=== PATIENT | female | born 1985 | race Caucasian/White ===

== ENCOUNTER → 2024-10-16 16:46 | Outpatient (REF) | payer BC, SELFPAY | LOC: RAD 16:46 | PROVIDERS: ATTENDING PHYSICIAN Obstetrics & Gynecology | DX: O26.851 Spotting complicating pregnancy, first trimester (principal) | CPT/HCPCS: 76801 ==

== ENCOUNTER → 2024-10-19 17:26 | Outpatient (REF) | payer BC, SELFPAY | LOC: RAD 17:26 | PROVIDERS: ATTENDING PHYSICIAN Student in an Organized Health Care Education/Training Program | DX: O26.851 Spotting complicating pregnancy, first trimester (principal) | CPT/HCPCS: 76801 ==

== ENCOUNTER → 2024-12-29 15:34 | Outpatient (REF) | payer BC, SELFPAY | LOC: PNTC 15:34 | PROVIDERS: ATTENDING PHYSICIAN Student in an Organized Health Care Education/Training Program | DX: O09.529 Supervision of elderly multigravida, unspecified trimester (principal); O09.819 Supervision of pregnancy resulting from assisted reproductive technology, unspecified trimester | CPT/HCPCS: 76811; 76817 ==

== ENCOUNTER → 2025-01-14 14:56 | Outpatient (REF) | payer BC, SELFPAY | LOC: PNTC 14:56 | PROVIDERS: ATTENDING PHYSICIAN Obstetrics & Gynecology | DX: Z36.89 Encounter for other specified antenatal screening (principal) | CPT/HCPCS: 76815 ==

== ENCOUNTER → 2025-02-08 07:51 | Outpatient (REF) | payer BC, SELFPAY | LOC: PNTC 07:51 | PROVIDERS: ATTENDING PHYSICIAN Obstetrics & Gynecology | DX: O09.512 Supervision of elderly primigravida, second trimester (principal); O09.812 Supervision of pregnancy resulting from assisted reproductive technology, second trimester; O34.12 Maternal care for benign tumor of corpus uteri, second trimester | CPT/HCPCS: 36415; 76816; 86850; 86900; 86901; 96372; J2790 ==

== ENCOUNTER → 2025-02-08 13:18 | Outpatient (REF) | payer BC, SELFPAY ==
--- NOTE | 2025-02-08 12:04 | PN.DIAED06 ---
Meal Plan - Gestational
- Breakfast
Gestational Diabetes Meal Plan Name: 1800 calories
Breakfast - Total Carbohydrate (grams): 30 (1 carb serving = 15 g)
Breakfast - Starch Carbohydrate: 1 (carbs = starch, milk, fruit, juice)
Breakfast - Fruit Carbohydrate: 0
Breakfast - Milk Carbohydrate: 1
Breakfast - Nonstarchy Vegetables: Yes
Breakfast - Meat/Protein: 1 (1 protein serving = 1 oz/7g)
Breakfast - Fat: 2 (1 fat serving = 5g)
- Morning Snack
Morning Snack - Total Carbohydrate (grams): 30
Morning Snack - Starch Carbohydrate: 1
Morning Snack - Fruit Carbohydrate: 0 (no fruit or juice before noon)
Morning Snack - Milk Carbohydrate: 1
Morning Snack - Nonstarchy Vegetables: Yes
Morning Snack - Meat/Protein: 0.5
Morning Snack - Fat: 0
- Lunch
Lunch - Total Carbohydrate (grams): 45
Lunch - Starch Carbohydrate: 2
Lunch - Fruit Carbohydrate: 1
Lunch - Milk Carbohydrate: 0
Lunch - Nonstarchy Vegetables: Yes
Lunch - Meat/Protein: 2
Lunch - Fat: 1
- Afternoon Snack
Afternoon Snack - Total Carbohydrate (grams): 30
Afternoon Snack - Starch Carbohydrate: 1
Afternoon Snack - Fruit Carbohydrate: 1
Afternoon Snack - Milk Carbohydrate: 0
Afternoon Snack - Nonstarchy Vegetables: Yes
Afternoon Snack - Meat/Protein: 1
Afternoon Snack - Fat: 0
- Dinner
Dinner - Total Carbohydrate (grams): 45
Dinner - Starch Carbohydrate: 2
Dinner - Fruit Carbohydrate: 0
Dinner - Milk Carbohydrate: 1
Dinner - Nonstarchy Vegetables: Yes
Dinner - Meat/Protein: 2
Dinner - Fat: 2
- Evening Snack
Evening Snack - Total Carbohydrate (grams): 30
Evening Snack - Starch Carbohydrate: 1
Evening Snack - Fruit Carbohydrate: 0
Evening Snack - Milk Carbohydrate: 1
Evening Snack - Nonstarchy Vegetables: Yes
Evening Snack - Meat/Protein: 1
Evening Snack - Fat: 1
--- NOTE | 2025-02-08 15:43 | PN.DE ---
Addendum entered by Leonela Thomason RN 02/10/25 08:38:
02/10/2025 GESTATIONAL DIABETES EDUCATION CONSULT UPDATE
Kary sent glucose numbers as follows: fasting 88, 2 hours post prandial breakfast: 90, lunch 82, dinner 118.
She stopped eating fruit in AM, eating after 12pm. Otherwise has stuck to her normal eating pattern. Encouraged her to outreach with any questions or concerns and reminded her to send her glucose numbers to the department every Saturday by
10am.
Original Note:
Diabetes Education
- -
02/08/2025 GESTATIONAL DIABETES EDUCATION CONSULT
Met with patient today for medical nutrition therapy. G1, P0, currently at 26 weeks of gestation, with an COMFORT of 05/14/2025
Explained glucose metabolism in body and what occurs during to cause increase blood sugar. Discussed importance of keeping BS well controlled to avoid complications to the baby during and after (macrosomia, hypoglycemia). Discussed
macronutrients, provided with 1800 kevin GDM meal plan. She will eliminate fruit before noon and add protein and fats to her carbohydrate portion. Discussed importance of physical activity in lowering glucose levels.
She feels she eats very healthy, but will be more careful on portion sizes of healthy fats. I provided a [employer] glucometer sample kit, she states this is covered by her insurance. Requested prescription to be sent to pharmacy in
[place], she is on vacation this week (lives in [place], [place]).
I Reviewed proper testing technique, testing sites and testing pattern. She is aware to test FBS and 2 hr pp each meal. Expected results for FBS <95 mg/dl and 2 hr pp <120 mg/dl. Noted for blood sugar of 60 mg/dl, she has not eating for several
hours since breakfast. . Log sheet provided for her to record results, she will send a 4-day meal log with all her FBG and 2hr Post prandial glucose numbers to this office for review. In addition, she will send all her glucose readings Robert
every Saturday.She was encouraged to reach out should she require insulin.
== END ==
LOC: DES 13:18
PROVIDERS: ATTENDING PHYSICIAN Obstetrics & Gynecology
DX: O24.419 Gestational diabetes mellitus in pregnancy, unspecified control (principal)
CPT/HCPCS: 99078

== ENCOUNTER 2025-03-13 17:12 | Observation (INO) | payer BC, SELFPAY ==
[2025-03-13 17:17] VITALS: BP 111/78; BMI 25.8
[2025-03-13 17:57] LABS: Hematocrit 33.7 % (37.0-47.0); Hemoglobin 11.9 g/dL (12.0-16.0); Mean Corp Hgb Conc. 35.3 g/dL (33.0-37.0); Mean Corpuscular Volume 96.6 fL (81.0-99.0); Platelet Count 108 10^3/uL (130-400); Red Cell Dist. Width 13.1 % (11.5-14.5)
[2025-03-13 18:14] LABS: ALT (SGPT) 18 U/L (0-35); AST (SGOT) 23 U/L (14-36); Albumin 3.3 g/dl (3.5-5.0); Alkaline Phosphatase 111 U/L (38-126); Blood Urea Nitrogen 14 mg/dl (7-17); Calcium 9.1 mg/dl (8.4-10.2); Carbon Dioxide 20 mmol/L (22-30); Chloride 112 mmol/L (98-107); Estimated Creatinine Clearance 116 ml/min; Glucose 110 mg/dl (70-99); Potassium 4.0 mmol/L (3.5-5.1); Sodium 135 mmol/L (135-145); Total Protein 5.6 g/dl (6.3-8.2); eGFR > 60.00
== END 2025-03-13 19:00 | disposition home or self-care (01) ==
LOC: LDRP 17:12
PROVIDERS: ADMITTING PHYSICIAN Student in an Organized Health Care Education/Training Program
DX: O99.891 Other specified diseases and conditions complicating pregnancy (principal); R22.43 Localized swelling, mass and lump, lower limb, bilateral; R51.9 Headache, unspecified; Z3A.37 37 weeks gestation of pregnancy
CPT/HCPCS: 59025; 80053; 82570; 84156; 85027; G0378

== ENCOUNTER 2025-03-22 16:38 | Observation (INO) | payer BC, SELFPAY ==
[2025-03-22 17:21] LABS: Hematocrit 33.6 % (37.0-47.0); Hemoglobin 11.7 g/dL (12.0-16.0); Mean Corp Hgb Conc. 34.8 g/dL (33.0-37.0); Mean Corpuscular Volume 96.0 fL (81.0-99.0); Platelet Count 100 10^3/uL (130-400); Red Cell Dist. Width 12.9 % (11.5-14.5)
[2025-03-22 17:30] LABS: ALT (SGPT) 18 U/L (0-35); AST (SGOT) 26 U/L (14-36); Albumin 3.2 g/dl (3.5-5.0); Alkaline Phosphatase 124 U/L (38-126); Blood Urea Nitrogen 16 mg/dl (7-17); Calcium 9.1 mg/dl (8.4-10.2); Carbon Dioxide 21 mmol/L (22-30); Chloride 109 mmol/L (98-107); Glucose 87 mg/dl (70-99); Potassium 4.1 mmol/L (3.5-5.1); Sodium 134 mmol/L (135-145); Total Protein 5.6 g/dl (6.3-8.2); eGFR > 60.00
[2025-03-22 17:59] VITALS: BP 115/74; BMI 26.3
== END 2025-03-22 18:42 | disposition home or self-care (01) ==
LOC: PNTC-IN 16:38
PROVIDERS: ADMITTING PHYSICIAN Student in an Organized Health Care Education/Training Program; ATTENDING PHYSICIAN Obstetrics & Gynecology
DX: O26.893 Other specified pregnancy related conditions, third trimester (principal); O09.513 Supervision of elderly primigravida, third trimester; Z3A.32 32 weeks gestation of pregnancy; O09.813 Supervision of pregnancy resulting from assisted reproductive technology, third trimester; R51.9 Headache, unspecified; O24.410 Gestational diabetes mellitus in pregnancy, diet controlled; O34.13 Maternal care for benign tumor of corpus uteri, third trimester; D25.9 Leiomyoma of uterus, unspecified; O99.113 Other diseases of the blood and blood-forming organs and certain disorders involving the immune mechanism complicating pregnancy, third trimester; D69.6 Thrombocytopenia, unspecified; Z79.82 Long term (current) use of aspirin; R22.43 Localized swelling, mass and lump, lower limb, bilateral
CPT/HCPCS: 76816; 80053; 82570; 84156; 85027; G0378

== ENCOUNTER 2025-04-02 12:30 | Observation (INO) | payer BC, SELFPAY ==
[2025-04-02 12:42] VITALS: BP 148/76; BMI 27.0
[2025-04-02 13:22] LABS: Hematocrit 33.0 % (37.0-47.0); Hemoglobin 11.6 g/dL (12.0-16.0); Mean Corp Hgb Conc. 35.2 g/dL (33.0-37.0); Mean Corpuscular Volume 94.6 fL (81.0-99.0); Nucleated Red Blood Cells % 0 %; Red Cell Dist. Width 13.0 % (11.5-14.5)
[2025-04-02 13:51] LABS: ALT (SGPT) 19 U/L (0-35); AST (SGOT) 28 U/L (14-36); Albumin 3.0 g/dl (3.5-5.0); Alkaline Phosphatase 126 U/L (38-126); Blood Urea Nitrogen 15 mg/dl (7-17); Calcium 8.8 mg/dl (8.4-10.2); Carbon Dioxide 19 mmol/L (22-30); Chloride 113 mmol/L (98-107); Estimated Creatinine Clearance 87 ml/min; Glucose 79 mg/dl (70-99); Potassium 4.2 mmol/L (3.5-5.1); Sodium 135 mmol/L (135-145); Total Protein 5.3 g/dl (6.3-8.2); eGFR > 60.00
[2025-04-02 14:03] LABS: Platelet Count 89 10^3/uL (130-400)
== END 2025-04-02 14:43 | disposition home or self-care (01) ==
LOC: LDRP 12:30
PROVIDERS: ADMITTING PHYSICIAN Obstetrics & Gynecology; FAMILY PHYSICIAN Family Medicine
DX: O26.893 Other specified pregnancy related conditions, third trimester (principal); R50.9 Fever, unspecified; H53.8 Other visual disturbances; R11.0 Nausea; O12.03 Gestational edema, third trimester; R03.0 Elevated blood-pressure reading, without diagnosis of hypertension; Z3A.34 34 weeks gestation of pregnancy; O09.813 Supervision of pregnancy resulting from assisted reproductive technology, third trimester; O24.410 Gestational diabetes mellitus in pregnancy, diet controlled; O09.513 Supervision of elderly primigravida, third trimester; O99.113 Other diseases of the blood and blood-forming organs and certain disorders involving the immune mechanism complicating pregnancy, third trimester; D69.6 Thrombocytopenia, unspecified; O34.13 Maternal care for benign tumor of corpus uteri, third trimester; D25.9 Leiomyoma of uterus, unspecified; Z79.82 Long term (current) use of aspirin
CPT/HCPCS: 80053; 82570; 84156; 85025; G0378

== ENCOUNTER 2025-04-06 11:15 | Inpatient (IN) | payer BC, SELFPAY ==
[2025-04-06 11:50] LABS: Hematocrit 31.8 % (37.0-47.0); Hemoglobin 11.1 g/dL (12.0-16.0); Mean Corp Hgb Conc. 34.9 g/dL (33.0-37.0); Mean Corpuscular Volume 95.8 fL (81.0-99.0); Platelet Count 81 10^3/uL (130-400); Red Cell Dist. Width 13.1 % (11.5-14.5)
[2025-04-06 11:54] LABS: Urine Character Clear (Clear)
[2025-04-06 12:03] LABS: Urine Squamous Cell 26-30 /LPF (Few)
[2025-04-06 12:05] VITALS: BP 138/91; BMI 26.6
[2025-04-06 12:06] LABS: ALT (SGPT) 28 U/L (0-35); AST (SGOT) 36 U/L (14-36); Albumin 2.9 g/dl (3.5-5.0); Alkaline Phosphatase 122 U/L (38-126); Blood Urea Nitrogen 19 mg/dl (7-17); Calcium 8.6 mg/dl (8.4-10.2); Carbon Dioxide 20 mmol/L (22-30); Chloride 111 mmol/L (98-107); Glucose 75 mg/dl (70-99); Potassium 4.4 mmol/L (3.5-5.1); Sodium 133 mmol/L (135-145); Total Protein 5.3 g/dl (6.3-8.2); eGFR > 60.00
[2025-04-06] MEDS: CELESTONE SOLUSPAN 2 MG IM (15:14)
[2025-04-06] MEDS: LR 1000 IV (15:28)
[2025-04-06] MEDS: MAGNESIUM SULFATE 100 IV (15:29)
[2025-04-06 15:33] LABS: Fibrinogen 374 MG/DL (199-459); INR 1.00; PT 13.5 Sec (11.4-14.6)
[2025-04-06 15:47] LABS: ALT (SGPT) 33 U/L (0-35); AST (SGOT) 42 U/L (14-36); Albumin 3.3 g/dl (3.5-5.0); Alkaline Phosphatase 158 U/L (38-126); Blood Urea Nitrogen 19 mg/dl (7-17); Calcium 9.1 mg/dl (8.4-10.2); Carbon Dioxide 19 mmol/L (22-30); Chloride 111 mmol/L (98-107); Estimated Creatinine Clearance 77 ml/min; Glucose 63 mg/dl (70-99); Potassium 4.4 mmol/L (3.5-5.1); Sodium 135 mmol/L (135-145); Total Protein 5.9 g/dl (6.3-8.2); eGFR > 60.00
[2025-04-06 15:49] LABS: Hematocrit 35.6 % (37.0-47.0); Hemoglobin 12.4 g/dL (12.0-16.0); Mean Corp Hgb Conc. 34.8 g/dL (33.0-37.0); Mean Corpuscular Volume 96.7 fL (81.0-99.0); Nucleated Red Blood Cells % 0.2 %; Platelet Count 88 10^3/uL (130-400); Red Cell Dist. Width 12.9 % (11.5-14.5)
[2025-04-06] MEDS: MAGNESIUM SULFATE 40 GRAM 1000 IV (15:57)
[2025-04-06 20:01] LABS: Glucose - Point of Care 89 mg/dl (70-99)
[2025-04-06] MEDS: CYTOTEC 25 MICROGRAM VAG (21:16)
--- NOTE | 2025-04-06 21:16 | CON.NEO ---
Consultation
-
Date/Time Consultation Requested: 04/06/2025
Date/Time Consultation Performed: 04/06/2025 @ 2029
Requesting Provider: Sekou
Performing Provider: Charity
Reason for Consultation: Expected delivery at 34 weeks
Consultation - Neonatology
Maternal Labs
Blood Type: A Negative
Antibody Screen: Negative
RPR: Nonreactive
Rubella: Immune
Hep B S Ag: Negative
Hep C: Negative
HIV: Nonreactive
Group B Strep: Unknown
Chlamydia/GC: Negative
Consult
Mother is a 39 yo G 1 P 0 who presented with preeclampsia. notable for IVF conception (donor egg from partner and donor sperm); gestational thrombocytopenia.
Both moms and grandmothers were present for the discussion.
anticipate a female infant to be named Sierra.
Points discussed at consult:
- Management at delivery including the possibility of CPAP/intubation/surfactant discussed
- Respiratory: RDS possibility with possibility of worsening for 24-48 hrs, management including CPAP/surfactant/ventilator support may be required
- Nutrition: Hypoglycemia, need for IV fluids, gradual feed advance, Gavage feeding, importance of colostrum feeding, initiation of expression of colostrum within 3-4 hours, availability of donor milk, safety fo donor milk etc. were discussed.
- Procedures: Intubation, CPAP, IV placement, blood tests, umbilical arterial or venous lines, gavage feedings were discussed
- CVS: possibility of PDA not discussed in detail at this time
- DIRECTOR OF ANALYTICS: prison possible neurodevelopmental issues - need for monitoring developmental stages
- Jaundice possibility and need for phototherapy discussed
- Family Centered Care: Discussed FCC with emphasis on parental participation during sign off and during management rounds and is encouraged. Availability of manuel eyes camera also discussed
Family was given the opportunity to ask questions throughout and open invitation to call if any questions come as they absorb all the information given so far.
Face to Face Time
Total Abji-yf-Xsyq Time (in Minutes): 30
[2025-04-06 22:19] LABS: Hematocrit 36.5 % (37.0-47.0); Hemoglobin 12.7 g/dL (12.0-16.0); Mean Corp Hgb Conc. 34.8 g/dL (33.0-37.0); Mean Corpuscular Volume 95.8 fL (81.0-99.0); Nucleated Red Blood Cells % 0.1 %; Platelet Count 104 10^3/uL (130-400); Red Cell Dist. Width 13.1 % (11.5-14.5)
[2025-04-07 00:21] LABS: Glucose - Point of Care 113 mg/dl (70-99)
[2025-04-07] MEDS: CYTOTEC 50 MICROGRAM PO ×3 (01:28→12:52)
[2025-04-07] MEDS: LR 1000 IV ×2 (03:52→14:54)
[2025-04-07] MEDS: TUMS CHEWABLE TABLET 400 MG PO (03:53)
[2025-04-07 04:26] LABS: Glucose - Point of Care 102 mg/dl (70-99)
[2025-04-07 04:45] LABS: Platelet Count 102 10^3/uL (130-400)
[2025-04-07 05:21] LABS: ALT (SGPT) 33 U/L (0-35); AST (SGOT) 39 U/L (14-36); Albumin 3.2 g/dl (3.5-5.0); Alkaline Phosphatase 185 U/L (38-126); Blood Urea Nitrogen 19 mg/dl (7-17); Calcium 8.5 mg/dl (8.4-10.2); Carbon Dioxide 14 mmol/L (22-30); Chloride 108 mmol/L (98-107); Estimated Creatinine Clearance 77 ml/min; Glucose 101 mg/dl (70-99); Magnesium 7.0 mg/dl (1.6-2.3); Potassium 4.5 mmol/L (3.5-5.1); Sodium 131 mmol/L (135-145); Total Protein 5.9 g/dl (6.3-8.2); eGFR > 60.00
[2025-04-07] MEDS: CYTOTEC PO (06:55)
[2025-04-07 08:18] LABS: Glucose - Point of Care 113 mg/dl (70-99)
[2025-04-07] MEDS: PEPCID 40 MG PO (08:31)
[2025-04-07] MEDS: CLARITIN 10 MG PO (08:31)
[2025-04-07] MEDS: PRENATAL PLUS 1 TABLET PO (08:34)
[2025-04-07 12:04] LABS: Platelet Count 110 10^3/uL (130-400)
[2025-04-07 12:29] LABS: Blood Urea Nitrogen 21 mg/dl (7-17); Calcium 8.3 mg/dl (8.4-10.2); Carbon Dioxide 14 mmol/L (22-30); Chloride 108 mmol/L (98-107); Estimated Creatinine Clearance 69 ml/min; Glucose 103 mg/dl (70-99); Magnesium 7.4 mg/dl (1.6-2.3); Potassium 4.6 mmol/L (3.5-5.1); Sodium 129 mmol/L (135-145); eGFR > 60.00
[2025-04-07] MEDS: ZOFRAN 4 MG IV ×2 (12:39→18:25)
[2025-04-07] MEDS: MAGNESIUM SULFATE 40 GRAM 1000 IV (12:41)
[2025-04-07 13:09] LABS: Glucose - Point of Care 97 mg/dl (70-99)
[2025-04-07] MEDS: CELESTONE SOLUSPAN 2 MG IM (15:00)
[2025-04-07] MEDS: TYLENOL 1000 MG PO (16:34)
[2025-04-07 16:35] LABS: 24 Hour Urine Total Volume 1200 ml
[2025-04-07] MEDS: PITOCIN 30 UNITS/NSS 500 ML IV (16:35)
[2025-04-07 17:04] LABS: Glucose - Point of Care 113 mg/dl (70-99)
[2025-04-07 21:10] LABS: Glucose - Point of Care 155 mg/dl (70-99)
[2025-04-07 22:13] LABS: Glucose - Point of Care 128 mg/dl (70-99)
[2025-04-07 23:14] LABS: Glucose - Point of Care 146 mg/dl (70-99)
[2025-04-07] MEDS: NOVOLIN R INSULIN INFUSION 100 IV (23:25)
[2025-04-08 00:37] LABS: Glucose - Point of Care 144 mg/dl (70-99)
[2025-04-08] MEDS: PENICILLIN 110 UNITS IV (00:43)
[2025-04-08 01:50] LABS: Glucose - Point of Care 135 mg/dl (70-99)
[2025-04-08 02:45] LABS: Glucose - Point of Care 118 mg/dl (70-99)
[2025-04-08] MEDS: SUBLIMAZE 100 MCG EPIDURAL (03:17)
[2025-04-08] MEDS: FENTANYL/BUPIVACAINE 100 EPIDURAL (03:18)
[2025-04-08] MEDS: LR 1000 IV ×2 (03:59→15:22)
[2025-04-08] MEDS: PENICILLIN 55 UNITS IV (04:50)
[2025-04-08 04:58] LABS: Glucose - Point of Care 128 mg/dl (70-99)
[2025-04-08 05:17] LABS: Hematocrit 36.5 % (37.0-47.0); Hemoglobin 12.7 g/dL (12.0-16.0); Mean Corp Hgb Conc. 34.8 g/dL (33.0-37.0); Mean Corpuscular Volume 98.4 fL (81.0-99.0); Platelet Count 107 10^3/uL (130-400); Red Cell Dist. Width 13.0 % (11.5-14.5)
[2025-04-08 05:27] LABS: ALT (SGPT) 31 U/L (0-35); AST (SGOT) 34 U/L (14-36); Albumin 3.1 g/dl (3.5-5.0); Alkaline Phosphatase 165 U/L (38-126); Blood Urea Nitrogen 25 mg/dl (7-17); Calcium 7.7 mg/dl (8.4-10.2); Carbon Dioxide 17 mmol/L (22-30); Chloride 108 mmol/L (98-107); Estimated Creatinine Clearance 63 ml/min; Glucose 132 mg/dl (70-99); Potassium 4.6 mmol/L (3.5-5.1); Sodium 130 mmol/L (135-145); Total Protein 5.5 g/dl (6.3-8.2); eGFR > 60.00
[2025-04-08 06:02] LABS: Glucose - Point of Care 120 mg/dl (70-99)
[2025-04-08] MEDS: ZOFRAN 4 MG IV (06:07)
[2025-04-08 06:41] LABS: Magnesium 8.0 mg/dl (1.6-2.3)
[2025-04-08 07:54] LABS: Glucose - Point of Care 140 mg/dl (70-99)
[2025-04-08] MEDS: PITOCIN 30 UNITS/NSS 500 ML IV (08:33)
[2025-04-08] MEDS: TRANEXAMIC ACID 100 IV (08:34)
[2025-04-08] MEDS: CYTOTEC 800 MCG RECTAL (08:51)
[2025-04-08 09:47] LABS: Hematocrit 29.0 % (37.0-47.0); Hemoglobin 9.5 g/dL (12.0-16.0)
[2025-04-08] MEDS: PEPCID PO (11:58)
[2025-04-08] MEDS: PRENATAL PLUS PO (11:58)
[2025-04-08] MEDS: CLARITIN PO (11:58)
[2025-04-08] MEDS: PENICILLIN IV (12:01)
[2025-04-08] MEDS: MAGNESIUM SULFATE 40 GRAM 1000 IV (15:23)
[2025-04-08] MEDS: MOTRIN 600 MG PO (16:32)
[2025-04-08] MEDS: TYLENOL 650 MG PO ×2 (16:33→20:36)
[2025-04-08] MEDS: LR IV (18:11)
[2025-04-08] MEDS: COLACE 100 MG PO (20:15)
[2025-04-09] MEDS: LR 1000 IV (03:00)
[2025-04-09] MEDS: TYLENOL 650 MG PO ×2 (03:25→18:39)
[2025-04-09] MEDS: MOTRIN 600 MG PO ×2 (03:25→18:37)
[2025-04-09 06:51] LABS: Hematocrit 25.4 % (37.0-47.0); Hemoglobin 9.2 g/dL (12.0-16.0); Mean Corp Hgb Conc. 36.2 g/dL (33.0-37.0); Mean Corpuscular Volume 93.0 fL (81.0-99.0); Nucleated Red Blood Cells % 0.1 %; Platelet Count 96 10^3/uL (130-400); Red Cell Dist. Width 15.3 % (11.5-14.5)
[2025-04-09] MEDS: CLARITIN 10 MG PO (12:21)
[2025-04-09] MEDS: PRENATAL PLUS 1 TABLET PO (12:21)
[2025-04-09] MEDS: COLACE 100 MG PO ×2 (12:21→19:52)
[2025-04-09] MEDS: PEPCID 40 MG PO (12:21)
[2025-04-09] MEDS: RHOGAM 300 MCG IM (13:27)
[2025-04-09 14:49] LABS: Syphilis/T. pallidum Ab Reflex Negative (Negative)
[2025-04-09] MEDS: FEOSOL 325 MG PO (16:09)
[2025-04-09] MEDS: LR IV (17:35)
[2025-04-10] MEDS: MOTRIN 600 MG PO ×2 (00:51→06:51)
[2025-04-10] MEDS: TYLENOL 650 MG PO ×2 (00:51→06:51)
[2025-04-10] MEDS: PEPCID 40 MG PO (08:13)
[2025-04-10] MEDS: CLARITIN 10 MG PO (08:13)
[2025-04-10] MEDS: COLACE 100 MG PO (08:13)
[2025-04-10] MEDS: FEOSOL 325 MG PO (08:13)
[2025-04-10] MEDS: PRENATAL PLUS 1 TABLET PO (08:14)
[2025-04-10] MEDS: LR IV (09:37)
== END 2025-04-10 12:30 | disposition home or self-care (01) | DRG 768 ==
LOC: LDRP 11:15
PROVIDERS: Obstetrics & Gynecology; Student in an Organized Health Care Education/Training Program; ADMITTING PHYSICIAN Obstetrics & Gynecology; ATTENDING PHYSICIAN Obstetrics & Gynecology
PROC: 3E0P7VZ Introduction of Hormone into Female Reproductive, Via Natural or Artificial Opening (ICD-10-PCS; 2025-04-06)
PROC: 0U7C7DJ Dilation of Cervix with Intraluminal Device, Temporary, Via Natural or Artificial Opening (ICD-10-PCS; 2025-04-06)
PROC: 3E033VJ Introduction of Other Hormone into Peripheral Vein, Percutaneous Approach (ICD-10-PCS; 2025-04-07)
PROC: 30233N1 Transfusion of Nonautologous Red Blood Cells into Peripheral Vein, Percutaneous Approach (ICD-10-PCS; 2025-04-08)
PROC: 0HQ9XZZ Repair Perineum Skin, External Approach (ICD-10-PCS; 2025-04-08)
PROC: 0UQMXZZ Repair Vulva, External Approach (ICD-10-PCS; 2025-04-08)
PROC: 0W3R7ZZ Control Bleeding in Genitourinary Tract, Via Natural or Artificial Opening (ICD-10-PCS; 2025-04-08)
PROC: 10E0XZZ Delivery of Products of Conception, External Approach (ICD-10-PCS; 2025-04-08)
PROC: 10907ZC Drainage of Amniotic Fluid, Therapeutic from Products of Conception, Via Natural or Artificial Opening (ICD-10-PCS; 2025-04-08)
PROC: 3E0234Z Introduction of Serum, Toxoid and Vaccine into Muscle, Percutaneous Approach (ICD-10-PCS; 2025-04-09)
DX: O14.14 Severe pre-eclampsia complicating childbirth (principal); Z37.0 Single live birth; E87.3 Alkalosis; O99.12 Other diseases of the blood and blood-forming organs and certain disorders involving the immune mechanism complicating childbirth; O26.893 Other specified pregnancy related conditions, third trimester; D69.59 Other secondary thrombocytopenia; Z3A.34 34 weeks gestation of pregnancy; O72.1 Other immediate postpartum hemorrhage; O70.0 First degree perineal laceration during delivery; O26.53 Maternal hypotension syndrome, third trimester; O32.6XX0 Maternal care for compound presentation, not applicable or unspecified; O32.2XX0 Maternal care for transverse and oblique lie, not applicable or unspecified; O24.420 Gestational diabetes mellitus in childbirth, diet controlled; O34.13 Maternal care for benign tumor of corpus uteri, third trimester; D25.9 Leiomyoma of uterus, unspecified; O99.344 Other mental disorders complicating childbirth; F41.9 Anxiety disorder, unspecified; Z67.11 Type A blood, Rh negative; Z23 Encounter for immunization
CPT/HCPCS: 76815; 80048; 80053; 81003; 81015; 81050; 82570; 82962; 83735; 84156; 85014; 85018; 85025; 85027; 85049; 85384; 85461; 85610; 86780; 86850; 86870; 86900; 86901; 86902; 86920; 86922; 87070; 88307; J2790; P9016

== ENCOUNTER 2025-04-26 21:53 | Inpatient (IN) | payer BC, SELFPAY ==
[2025-04-26] VITALS (36 sets, daily range): BP systolic 58–145; BP diastolic 25–96; BMI 23.3
[2025-04-26 14:10] LABS: Hematocrit 35.3 % (37.0-47.0); Hemoglobin 11.5 g/dL (12.0-16.0); Mean Corp Hgb Conc. 32.6 g/dL (33.0-37.0); Mean Corpuscular Volume 97.0 fL (81.0-99.0); Nucleated Red Blood Cells % 0 %; Platelet Count 184 10^3/uL (130-400); Red Cell Dist. Width 13.5 % (11.5-14.5)
[2025-04-26] MEDS: NSS 1000 IV (14:13)
--- NOTE | 2025-04-26 14:21 | ED.GENMED ---
History of Present Illness
General
Chief Complaint: Vaginal Bleeding
Source: patient
Exam Limitations: none
Time Seen by Provider: 04/26/25 14:07
Nursing documentation reviewed up to this point in time: agreed with
History of Present Illness
History of Present Illness:
Patient is a 39F 18 days s/p vaginal delivery complicated by hemorrhage who presents to the emergency department via EMS for evaluation of vaginal bleeding. Patient reports some mild vaginal bleeding since discharge on 04/10 however
this morning she describes a sudden 'gush' of bleeding while she was sitting on the couch. She reports that the bleeding soaked through her depends and pants onto the couch. Ramirez then went to the bathroom and reports a significant amount of bright
red bleeding 'filling the toilet bowl'. She did contact her OBGYN office and leave a message however given degree of bleeding - she called 911 for transportation to the emergency department.
She reports persistent lightheadedness and fatigue since discharge from the hospital. She denies any fevers, chest pain, shortness of breath.
She was reporting lower abdominal cramping this morning, worse then her typical cramps since delivery. She does note passing a clot yesterday evening however states it was 'smaller than an egg' which was the threshold that she was given by her OBGYN.
Patient was induced secondary to pre-eclampsia. She had a hemorrhage and states the she received 2 units of blood .
Past History
Social History
Personal: Single
Living: with family
Review of Systems
Review of Systems
Allergies reviewed?: Yes
All Other Systems: ROS reviewed and negative except as documented in HPI and ROS
Phy Exam
Physical Exam
Physical Exam:
Vitals: Patient's vital signs are stable. Afebrile
General: Patient is anxious and tearful
Skin: Warm and dry, no rashes or lesions
Head: Normocephalic, atraumatic
Eyes: Sclera nonicteric.
Throat: Protecting airway
Neck: Normal ROM, no cervical spine tenderness, no meningismus
Cardiac: Regular rate and rhythm, no murmurs.
Pulm: Normal respiratory effort, no wheezes, rales, rhonchi heard on exam
Abdomen: Abdomen soft and nontender.
Pelvic: Deferred by patient
Extremities: No evidence of cyanosis or edema
Neuro: AAOx3. Grossly intact.
Psychiatric: Normal affect.
Course
Orders/Labs/Results
Orders:
Orders
04/26/25 Breakfast
NPO
Allow oral meds: Yes
Allow clear liquids: Sips of Clears
04/26/25 13:55
IV Insert/Care/Rem.- Treatment PRN
Pulse Ox/spot Check [RESP] Urgent
Quantity: 1
Special Instructions: ON ROOM AIR
04/26/25 14:00
Type+Screen Urgent
CMP [Comprehensive Metabolic Panel] Urgent
Complete Blood Count/With Diff Urgent
04/26/25 14:12
0.9% Sodium Chloride 1000 ml [Nss] 1,000 ml IV BOLUS
04/26/25 14:50
Consult AGRICULTURAL SERVICE WORKER [AGRICULTURAL SERVICE WORKER CONSULT] Urgent
Consulting Provider: Cindy Duarte
Was physician already notified: Yes
04/26/25 15:07
US Transvaginal [US Pelvis W Transvag Combined] Urgent
Comment:
Reason For Exam: vaginal bleeding
04/26/25 16:42
Urinalysis Reflex To Culture Urgent
Date Specimen was Collected: 04/26/25
Time Specimen was Collected: 16:41
Urine Microscopic Reflex Cult Urgent
Urine Culture Urgent
CM Source: U
Specimen Description:
Date Specimen was Collected: 04/26/25
Time Specimen was Collected: 16:41
Comment: ADD ON
04/26/25 17:23
Add On - Microbiology Urgent
Tests Added?: urine culture
04/26/25 17:41
Acetaminophen [Tylenol] 1,000 mg PO NOW STA
04/26/25 17:47
Dexamethasone Sod Phosphate [Decadron] 20 mg .ROUTE .STK-MED ONE
Lidocaine 2% Mpf [Xylocaine Mpf 2%] 100 mg .ROUTE .STK-MED ONE
Ondansetron Injectable [Zofran] 4 mg .ROUTE .STK-MED ONE
Propofol [Diprivan] 20 ml .ROUTE .STK-MED
04/26/25 17:48
Fentanyl Citrate/Pf [Sublimaze] 100 mcg .ROUTE .STK-MED ONE
Midazolam HCl [Versed] 2 mg .ROUTE .STK-MED ONE
04/26/25 17:56
Lidocaine Mpf 1% [Xylocaine-Mpf 1% Vial] 30 ml .ROUTE .STK-MED ONE
04/26/25 18:04
Doxycycline Hyclate [Vibramycin] 100 mg 0.9% Sodium Chloride 250 ml [Nss] 250 ml IV NOW
04/26/25 18:16
HYDROmorphone [Dilaudid] 0.25 mg IV PACU-Q5MPRN PRN
HYDROmorphone [Dilaudid] 0.5 mg IV PACU-Q5MPRN PRN
Ondansetron Injectable [Zofran] 4 mg IV PACU-ONCEPRN PRN
Prochlorperazine [Compazine] 5 mg IV PACU-ONCEPRN PRN
Notify MD As Directed
Notify physician if: for SDS patients with known or suspected sleep obstructive sleep apnea, monitor in the
PACU.
Notify MD for any apneic/desaturation episodes
O2 Therapy [RESP] Urgent
Titrate/Wean O2 to maintain O2 sat greater than (%): 92
Special Instructions: -Provide supplemental oxygen to achieve O2 sat of 92% or greater.
-After 15 min, may wean O2 and discontinue if patient is able to maintain O2 sat of 92%
or greater during recovery period.
If patient is a discharge home, without oxygen therapy, notify anestheiologist if
unable to maintain O2 SAT of 92% or greater on room air for MD clearance.
04/26/25 18:26
Fentanyl Citrate/Pf [Sublimaze] 25 mcg IV [id number] PRN
04/26/25 18:28
OR Pathology Routine
Pre-Operative Diagnosis: RETAINED PRODUCTS OF CONCEPTION
Operative Procedure: Dilatation & Evacuation
Surgeon: SHAYE
Circulating Nurse: CHRIS
Specimen Type: RETAINED PRODUCTS OF CONCEPTION
04/26/25 18:30
Acetaminophen 1000MG/100Ml [Ofirmev] 1,000 mg in 100 ml .ROUTE .STK-MED
Normosol (Mult Electrolytes) [Normosol-R/Plasmalyte-A] 1,000 ml IV PER PROTOCOL
04/26/25 18:32
Tranexamic Acid 1000 mg/100 ml [Tranexamic Acid] 1,000 mg in 100 ml .ROUTE .STK-MED
04/26/25 19:35
HYDROmorphone [Dilaudid] 0.5 mg .ROUTE .STK-MED ONE
04/26/25 20:00
Normosol (Mult Electrolytes) [Normosol-R/Plasmalyte-A] 1,000 ml IV SDS-ONCE
Ondansetron Injectable [Zofran] 4 mg IV SDS-ONCEPRN PRN
04/26/25 21:20
H&H Stat
Comment: post op bleeding
04/26/25 21:25
PHENYLephrine 50 MG/250 ML NSS [Jesus-Synephrine] 50 mg in 250 ml IV NOW
Initial dose in mcg/min, then titrate:: 50
Titrate to keep:: MAP > 65 mmHg
Titrate by mcg/min:: 20 mcg/min
Frequency of titrations (minutes):: 5
Maximum dose in ICU in mcg/min:: 200
Maximum dose in IMU in mcg/min:: 80
Begin to taper infusion when:: Other
Begin to taper infusion when (other):: may wean to off if patient maintains goal parameters
Taper by mcg/min:: 20 mcg/min
Frequency of taper (minutes) if patient maintains goal:: 5
Taper to off?: Yes
If infusion off & no longer maintaining goal:: Contact Provider
Additional Taper Instructions:: taper every 5-15 minutes
04/26/25 21:46
Admit/Transfer Patient As Directed
Co-Sign Provider:
Level of Care: Inpatient admission
Assign to:: ICU
Physician / Group: Chandrakant
Diagnosis: Post- Hemorrhage, Hypovolemic Shock
Reason for Hospitalization: Post- Hemorrhage, Hypovolemic Shock
Expected length of stay greater than two midnights?: Yes
ELOS- Estimated Length of Stay in days: 2
I certify the patient meets the requirements for IP care: Yes
PRN Pain Medication Management As Directed
May give lesser potent ordered pain med per pt: Yes
preference::
Protocol:: Medication orders for pain may be administered in a
manner that supports deferring to patient preference
when the pt is:
- Requesting an ordered lesser potent pain medication.
Least to most potent pain medications are defined
as: acetaminophen < NSAID < tramadol < opioids
(morphine, oxycodone, hydromorphone).
- Requesting a lesser dose of the same medication IF
ORDERED.
- Requesting a less intrusive route of administration
if both routes are prescribed by the provider (PO <
IV).
04/26/25 21:47
Code Status As Directed
Resuscitation Status: Full Code
04/26/25 22:00
miSOPROStol [Cytotec] 800 mcg PO ONCE ONE
04/26/25 22:17
Acetaminophen [Tylenol] 650 mg PO Q4HPRN PRN
HYDROmorphone [Dilaudid] 0.5 mg IV Q4HPRN PRN
Lactated Ringers [Lr] 1,000 ml IV 125 mls/hr
Ondansetron Injectable [Zofran] 4 mg IV Q6HPRN PRN
PHENYLephrine 50 MG/250 ML NSS [Jesus-Synephrine] 50 mg in 250 ml IV PER PROTOCOL
Currently infusing. Continue current dose and titrate:: Yes
Titrate to keep:: SBP > 90 mmHg
Titrate by mcg/min:: 20 mcg/min
Frequency of titrations (minutes):: 5
Maximum dose in ICU in mcg/min:: 200
Maximum dose in IMU in mcg/min:: 80
Begin to taper infusion when:: Remained at goal for 4hrs
Taper by mcg/min:: 20 mcg/min
Frequency of taper (minutes) if patient maintains goal:: 30
Taper to off?: Yes
If infusion off & no longer maintaining goal:: Contact Provider
04/26/25 22:17
Activity As Directed
Activity Level: Bedrest
EKG with chest pain [ECG as needed] As Directed
ECG as needed for:: Chest Pain
I/O [Intake/ Output] As Directed
Frequency: Per unit guidelines
Pneumatic Compression Sleeves As Directed
Type: Knee high
Vital Signs As Directed
Frequency: Per unit guidelines
Oxygen Therapy [O2 Therapy] [RESP] Routine
Titrate/Wean O2 to maintain O2 sat greater than (%): 94
DX Deep Vein Thrombosis Video Routine
04/27/25 06:00
Basic Metabolic Panel IN AM
Complete Blood Count/No Diff IN AM
04/27/25 08:00
Ferrous Sulfate [Feosol] 325 mg PO BID
Abnormal Lab Results
04/26/25 04/26/25 04/26/25
14:00 16:42 21:20
RBC 3.64 L 10^6/uL
(4.20-5.40)
Hgb 11.5 L g/dL 9.1 L D g/dL
(12.0-16.0) (12.0-16.0)
Hct 35.3 L % 27.5 L %
(37.0-47.0) (37.0-47.0)
MCH 31.6 H pg
(27.0-31.0)
MCHC 32.6 L g/dL
(33.0-37.0)
Absolute Monos (auto) 0.7 H 10^3/uL
(0.1-0.6)
BUN 18 H mg/dl
(7-17)
Ur Occult Blood Reflex 3+ A
(Negative)
Urine RBC 11-15 A /HPF
(0-2)
Urine Bacteria (Reflex) Few A
(Negative)
Antibody Screen Positive A
(Negative)
04/26/25 21:20
04/26/25 14:00
Vital Signs
Initial and Last Documented VS:
Initial Vital Signs
Pulse Resp Pulse Ox
84 15 100
04/26/25 13:55 04/26/25 13:55 04/26/25 13:55
Last Documented Vital Signs
Temp Pulse Resp BP Pulse Ox
97.8 F 90 11 118/74 98
04/26/25 23:40 04/26/25 22:05 04/26/25 22:05 04/26/25 22:05 04/26/25 23:52
MDM/Problems Addressed
Differential Diagnosis Includes:
Not limited to: hemorrhage, vaginal cervical laceration, anemia, normal course, etc.
MDM/Problems Addressed:
39-year-old female 13 days s/p vaginal delivery complicated by hemorrhage presenting to the emergency department with vaginal bleeding. She describes large gush of bleeding this morning w/ small clots. She has been lightheaded and
experiencing fatigue since delivery however no shortness of breath. No fevers. Patient is hemodynamically stable, normotensive. On exam, patient anxious and tearful however appears nontoxic. Abdomen soft and nontender. She deferred pelvic exam.
Given patient is 13 days following delivery with hemorrhage requiring 2 units PRBCs -will consult AGRICULTURAL SERVICE WORKER for further evaluation. Will send basic labs and type and screen.
Update: Labs reviewed. Very mild anemia with hemoglobin of 11.5 which has increased from 9.2 following delivery. Chemistry unremarkable. AGRICULTURAL SERVICE WORKER, Dr. Duarte, down to evaluate patient at bedside who reports she had no active bleeding on pelvic exam.
Will send patient for pelvic ultrasound and obtain urinalysis.
Update 4:50 PM: Ultrasound report reveals concerns for 2 cm heterogenous echogenicity in lower uterine segment consistent with possible retained products of conception. This was immediately discussed with AGRICULTURAL SERVICE WORKER on-call, Dr. Duarte. She was down to
discussed with patient at bedside who has remained hemodynamically stable without any active bleeding. However�with concerns for retained products that she will be brought to the OR for D&E.
Patient transported to the OR in stable condition.
Chronic conditions affecting care:
13 days s/p vaginal delivery complicated by hemorrhage
Acute Exacerbation and/or Progression of Chronic Illness:
bleeding secondary to retained products
*Radiology
Radiology exam reviewed: radiology read reviewed
*Pulse Oximetry
SaO2: 99
Oxygen Mode of Delivery: Room air
Patient hypoxic: no
*EKG
Interpreted by ED Provider?: NA
*Feller Operator Interpretation
Rate: Feller Operator- N/A
*Critical Care Note
Total Time (30-74mins, 75-104mins- exclusive of procedures): Not Applicable
Data Reviewed
Review of Other/Old Records Reveals: Discharge Summary (Delivery summary 04/08/2025 w/ hemorrhage)
Patient Management
Discussion with other providers: Insurance Consultant (Case discussed with AGRICULTURAL SERVICE WORKER)
ED Attending Note
-
Portions of this chart may have been created with voice recognition software.� Occasional wrong word or��sound alike� substitutions may have occurred due to the inherent limitations of voice recognition software.
Discharge Plan
Departure
Patient Disposition: OR
Date of Disposition: 04/26/25
Time of Disposition: 17:41
Admit to doctor: Dr. Duarte
Presentation/result/management discussed w/ accepting MD/DO: CITLALY
Discharge Problem:
bleeding, Retained products of conception
Interventions
Interventions:
*Risk Screen - Suicide Last Done: 04/26/25 14:00
*General Assessment Last Done: 04/26/25 14:00
*Neglect/Abuse Screening Last Done: 04/26/25 14:00
*ED- Fall Risk Assessment Last Done: 04/26/25 14:00
*ED COVID-19 Vaccine History Last Done: 04/26/25 14:00
*ED Influenza Vaccine History Last Done: 04/26/25 14:00
*Nursing Disposition Last Done: 04/26/25 17:59
ED-Female Genitourinary Assessment Last Done: 04/26/25 15:00
Discharge Date and Time
Discharge Date/Time: 04/26/25 18:00
[2025-04-26 14:22] LABS: ALT (SGPT) 23 U/L (0-35); AST (SGOT) 25 U/L (14-36); Albumin 4.2 g/dl (3.5-5.0); Alkaline Phosphatase 79 U/L (38-126); Blood Urea Nitrogen 18 mg/dl (7-17); Calcium 9.2 mg/dl (8.4-10.2); Carbon Dioxide 25 mmol/L (22-30); Chloride 106 mmol/L (98-107); Estimated Creatinine Clearance 99 ml/min; Glucose 89 mg/dl (70-99); Potassium 4.0 mmol/L (3.5-5.1); Sodium 135 mmol/L (135-145); Total Protein 7.0 g/dl (6.3-8.2); eGFR > 60.00
[2025-04-26 16:52] LABS: Urine Character Clear (Clear)
[2025-04-26 17:01] LABS: Urine Squamous Cell 0-2 /LPF (Few); Urine White Cell 0-2 /HPF (0-5)
[2025-04-26] MEDS: DILAUDID 0.5 MG IV ×2 (19:35→23:12)
[2025-04-26] MEDS: NEO-SYNEPHRINE 250 IV (21:29)
[2025-04-26 21:40] LABS: Hematocrit 27.5 % (37.0-47.0); Hemoglobin 9.1 g/dL (12.0-16.0)
[2025-04-26] MEDS: CYTOTEC 800 MCG PO (21:50)
[2025-04-26 22:23] LABS: Glucose - Point of Care 155 mg/dl (70-99)
--- NOTE | 2025-04-26 22:24 | HPS.HSE ---
Family Physician
-
Family Physician: Balta Stahl
Chief Complaint
-
Hypotension, Post- Bleeding
History of Present Illness
Patient is a 39y F with no significant PMH who presents to ED complaining of vaginal bleeding. She is 18 weeks post- and had prior / immediate post- bleeding after delivery that required 2 units of PRBCs. She presented to the ED
this evening with recurrent bleeding, lightheadedness and weakness. Patient was seen by OB and taken to the OR for evaluation. She underwent D&E with EBL of 500cc. In PACU. Patient was noted to be hypotensive, pale and lightheaded. She had an
additional 350cc of blood loss in the PACU. BP was as low as 60/40. Patient was started on phenylephrine in the PACU and will be admitted to ICU. She received a dose of misoprostol in the PACU.
In the PACU, patient denies chest pain, SOB. She reports some expected crampy pelvic pain s/p surgery.
Medical History
Past Medical History
Past Medical History: Reports Other
Additional Past Medical History:
IVF Treatments
Pre-Eclampsia, Induced Labor, Post- Hemorrhage
Past Surgical History: Reports Other
Additional Past Surgical History:
IVF [place]
Social History
Tobacco: Non-smoker
Alcohol: None
Drug: None
Family History
Family History: Not pertinent
Allergies / Home Medications
Allergies reflects when Allergies were last updated in [facility].
Home Medications with original date entered in [facility]
Allergy/Medication List:
Allergies
Allergy/AdvReac Type Severity Reaction Status Date / Time
No Known Allergies Allergy Verified 04/06/25 12:04
Home Medications
famotidine 40 mg tablet (Pepcid) 40 mg PO DAILY 04/02/25
fluticasone propionate 50 mcg/actuation nasal spray,suspension 1 spray intranasal DAILY 04/02/25
loratadine 10 mg tablet (Claritin) 10 mg PO DAILY 04/02/25
multivit with [id number] 18 mg iron-800 mcg-150 mg tablet (Vitamin D3 Complete) 1 tab PO DAILY 04/02/25
omega-3 fatty acids 1,000 mg PO DAILY 04/02/25
vitamin-ferrous fumarate 28 mg iron-folic acid 800 mcg tablet ( Tablet) 1 tab PO DAILY 04/02/25
acetaminophen 500 mg tablet (Tylenol Extra Strength) 1,000 mg (2 x 500 mg) PO Q6HPRN PRN headache 60 days #90 tabs 04/10/25
ferrous sulfate 325 mg (65 mg iron) tablet (FeroSul) 325 mg PO DAILY 30 days #30 tabs 04/10/25
ibuprofen 600 mg tablet 600 mg PO Q6HPRN PRN moderate pain/cramps 60 days #90 tabs 04/10/25
Review of Systems
-
History Source: Patient
A 12 point ROS was completed and negative except as noted: Yes
Constitutional: Reports Fatigue; Denies Fever or Chills
Respiratory: Denies Cough or Trouble Breathing
Cardiac: Denies Chest Pain or Palpitations
Abdomen/GI: Denies Abdominal Pain, Nausea, Vomiting or Diarrhea
: Reports Other (Pelvic pain / cramping.); Denies Dysuria, Frequency or Flank Pain
Musculoskeletal: Denies Joint Pain or Edema
Neurological: Reports Dizzy; Denies Headache
Psych: Reports Anxiety
Physical Exam
Vital Signs
Vital Signs
Temp Pulse Resp BP Pulse Ox
97.4 F 90 11 118/74 99
04/26/25 20:30 04/26/25 22:05 04/26/25 22:05 04/26/25 22:05 04/26/25 22:05
Physical Exam
General: Other (Pale-appearing, mildly anxious 39y F. Answers questions / follows commands appropriately.)
HEENT: Moist mucous membranes and PERRLA
Respiratory: Clear; No Wheezes, Rales or Rhonchi
Cardiac: S1/S2 and Tachycardia; No Murmur
GI: Soft, Non Tender, Non Distended and Normal Bowel Sounds
Musculoskeletal: No Clubbing, No Cyanosis and No Edema
Neuro: AO x 3
Laboratory Results
-
Laboratory Results
Total Bilirubin 0.5 mg/dl (0.2-1.3) 04/26/25 14:00
AST 25 U/L (14-36) 04/26/25 14:00
ALT 23 U/L (0-35) 04/26/25 14:00
Alkaline Phosphatase 79 U/L (38-126) 04/26/25 14:00
Impression/Plan
-
A/P: Patient is a 39y F with PMH significant for IVF s/p induced labor 18 days ago who presents to ED complaining of vaginal bleeding and was taken to the OR for D&E. Noted to be hypotensive post-op requiring pressor support.
Post- Hemorrhage
Hypovolemic / Hemorrhagic Shock secondary to the above
Acute Blood [place] Anemia secondary to the above
- Admit to ICU for further evaluation and treatment.
- Continue pressor support as needed to maintain perfusion.
- Follow H&H for changes (11.5 pre-op and 9.1 post-op). Transfuse if needed.
- IVF / volume support.
- Follow for evidence of ongoing vaginal bleeding.
- Post-op management per OB.
- Follow for clinical improvement / stabilization of BP.
DVT Prophylaxis: SCDs
Code Status: Full
[2025-04-26] MEDS: LR 1000 IV (22:39)
[2025-04-26 22:45] LABS: Hematocrit 32.8 % (37.0-47.0); Hemoglobin 10.1 g/dL (12.0-16.0); Mean Corp Hgb Conc. 30.8 g/dL (33.0-37.0); Mean Corpuscular Volume 101.9 fL (81.0-99.0); Platelet Count 233 10^3/uL (130-400); Red Cell Dist. Width 13.6 % (11.5-14.5)
[2025-04-26 23:00] LABS: INR 1.10; PT 14.5 Sec (11.4-14.6)
[2025-04-26 23:01] LABS: Fibrinogen 343 MG/DL (199-459)
[2025-04-26] MEDS: ZOFRAN 4 MG IV (23:12)
[2025-04-26 23:27] LABS: APTT 22.5 Sec (23.4-35.0)
[2025-04-27] VITALS (38 sets, daily range): BP systolic 92–133; BP diastolic 50–102; BMI 21.4
[2025-04-27 00:17] LABS: Blood Urea Nitrogen 16 mg/dl (7-17); Calcium 8.1 mg/dl (8.4-10.2); Carbon Dioxide 21 mmol/L (22-30); Chloride 109 mmol/L (98-107); Estimated Creatinine Clearance 116 ml/min; Glucose 152 mg/dl (70-99); Magnesium 1.9 mg/dl (1.6-2.3); Potassium 4.5 mmol/L (3.5-5.1); Sodium 133 mmol/L (135-145); eGFR > 60.00
--- NOTE | 2025-04-27 00:27 | PTCARENOTE ---
Rec'd pt from PACU s/p D & E, requiring boyd for MAP goal 65. Dr Duarte at bedside for eval. Labs sent and resulted. Hgb stable. Emotional support provided, mom at bedside and updated on plan of care. Will monitor.
[2025-04-27] MEDS: DILAUDID 0.5 MG IV (03:02)
[2025-04-27 05:11] LABS: Blood Urea Nitrogen 17 mg/dl (7-17); Calcium 8.0 mg/dl (8.4-10.2); Carbon Dioxide 24 mmol/L (22-30); Chloride 110 mmol/L (98-107); Estimated Creatinine Clearance 99 ml/min; Glucose 116 mg/dl (70-99); Potassium 4.8 mmol/L (3.5-5.1); Sodium 137 mmol/L (135-145); eGFR > 60.00
--- NOTE | 2025-04-27 05:30 | PTCARENOTE ---
Hgb 7.4, Dr Duarte at bedside to discuss transfusion. Awaiting call from BB for 2 U PRBC. Calcium repleted. Will monitor
[2025-04-27 05:31] LABS: Hematocrit 22.1 % (37.0-47.0); Hemoglobin 7.4 g/dL (12.0-16.0); Mean Corp Hgb Conc. 33.5 g/dL (33.0-37.0); Mean Corpuscular Volume 96.1 fL (81.0-99.0); Platelet Count 204 10^3/uL (130-400); Red Cell Dist. Width 13.7 % (11.5-14.5)
[2025-04-27] MEDS: CALCIUM GLUCONATE 100 IV (06:05)
[2025-04-27] MEDS: LR 1000 IV ×2 (06:06→16:03)
--- NOTE | 2025-04-27 07:59 | CON.INTV ---
Consultation
Consultation Request
Date/Time Consultation Requested: 04/26/20252227
Date/Time Consultation Performed: 04/27/2025758
Requesting Provider: AAYUSH Basurto
Performing Provider: Dr. Moreno
Reason for Consultation: bleeding with circulatory shock
Medical History
-
Chief Complaint: Vaginal bleeding
History of Present Illness:
39-year-old female who is now #19 with a past medical history of gestational diabetes, and preeclampsia with severe features requiring labor induction with hemorrhage who presents with vaginal bleeding. She was having
some mild vaginal bleeding since she gave but she had a sudden 'gush' of bleeding while sitting on the couch prior to arrival. She then went to the bathroom and found bright red bleeding filling up the toilet bowl. Given the severity of her
bleeding, she called 911 and then came here to [facility] for further treatment. She was feeling lightheaded and fatigued since she was discharged from the hospital several weeks ago after her vaginal . She was having lower abdominal
cramping prior to ER arrival, worse than her typical cramps since delivery. She passed a clot 1 day DIRECT MARKETING INTERN which was smaller than the size of an egg. In the ER she was afebrile, with pulse rate 84, respiratory rate 15, initial BP 132/82 and
saturating 100% on room air. Initial labs showed WBC 7.3, Hb 11.5, platelet count 184, urinalysis with negative leukocyte esterase, +3 occult blood with 11�15 urine RBC. Urine culture collected. CXR showed no acute cardiopulmonary process.
Pelvic/transvaginal ultrasound performed showing heterogeneous echogenicity measuring up to 2 cm at the lower uterine segment endometrium, suggestive of retained products of conception. In the ER she was given 1 L NS 0.9%, 800 mcg misoprostol, 0.5
mg Dilaudid and she required Jesus-Synephrine initially due to hypotension with SBP in the 50-60s. PRODUCTION OPERATIONS INSPECTOR was consulted and she was brought to the OR for suction D&E with Desiree device placement and laceration repair. EBL was approximately 500 cc.
She was given 600 cc of crystalloids. The jaded device was removed and there was no active bleeding seen even up to 30 minutes after removal. Patient was transferred to the ICU for further monitoring and [facility] services consulted for
additional management/recommendations.
Patient seen and evaluated this morning. Getting second unit of blood now. Jesus-Synephrine off since this morning. No signs of bleeding as of this morning. Her mother, Nicole, is present at bedside. All questions were answered. The patient feels
rather well, denying headache, chest pain, SOB, nausea, fevers or chills. She does have some lower abdominal discomfort where her uterus is located.
PMHx: Preeclampsia with severe features s/p labor induction with hemorrhage requiring blood transfusion x 2, gestational diabetes, gestational thrombocytopenia, history of in vitro fertilization
PSHx: IVF harvest
Past Medical History
Past Medical History: Other (Above as per HPI)
Past Surgical History: Other (Above as per HPI)
Social History
Tobacco: Non-smoker
Alcohol: Occasional
Drug: None
Personal: Single
Living: Alone
Employment: Employed
Family History
Family History: Hypertension (Father)
Allergies / Home Medications
Allergies
Allergy/AdvReac Type Severity Reaction Status Date / Time
No Known Allergies Allergy Verified 04/06/25 12:04
Home Medications
�Medication �Instructions �Recorded �Confirmed �Last Taken �Type
famotidine 40 mg tablet (Pepcid) 40 mg PO DAILY 04/02/25 04/26/25 04/06/25 09:00 History
fluticasone propionate 50 1 spray intranasal DAILY 04/02/25 04/26/25 04/06/25 09:00 History
mcg/actuation nasal
spray,suspension
loratadine 10 mg tablet (Claritin) 10 mg PO DAILY 04/02/25 04/26/25 04/06/25 09:00 History
multivit with 1 tab PO DAILY 04/02/25 04/26/25 04/06/25 09:00 History
[id number] 18 mg
iron-800 mcg-150 mg tablet
(Vitamin D3 Complete)
omega-3 fatty acids 1,000 mg PO DAILY 04/02/25 04/26/25 04/06/25 09:00 History
vitamin-ferrous fumarate 1 tab PO DAILY 04/02/25 04/26/25 04/06/25 09:00 History
28 mg iron-folic acid 800 mcg
tablet ( Tablet)
acetaminophen 500 mg tablet 1,000 mg (2 x 500 mg) PO Q6HPRN 04/10/25 04/26/25 Unknown Rx
(Tylenol Extra Strength) PRN headache 60 days #90 tabs
ferrous sulfate 325 mg (65 mg 325 mg PO DAILY 30 days #30 tabs 04/10/25 04/26/25 Unknown Rx
iron) tablet (FeroSul)
ibuprofen 600 mg tablet 600 mg PO Q6HPRN PRN moderate 04/10/25 04/26/25 Unknown Rx
pain/cramps 60 days #90 tabs
Review of Systems
-
History Source: Patient
All other systems: Negative unless noted
Vitals / Labs / Diagnostic Testing
Vital Signs
Temp Pulse Resp BP Pulse Ox
99.0 F 85 16 122/72 99
04/27/25 09:56 04/27/25 09:56 04/27/25 09:56 04/27/25 09:56 04/27/25 09:00
Lab Data
04/27/25 04:36
04/27/25 04:36
Laboratory Results
04/26/25 04/26/25 04/26/25
22:36 22:36 22:36
PT 14.5 Cancelled
INR 1.10 Cancelled
APTT 22.5 L
Diagnostic Testing:
Physical Exam
-
HEENT: Normocephalic and Anicteric
Cardiovascular: S1/S2 and Peripheral Edema (negative)
Respiratory: Clear, Wheeze (negative), Rales (negative), Rhonchi (negative) and Non-Labored Respirations
GI: Soft, Distended (lower abdomen), Non Tender and Normal Bowel Sounds
Neurology: AO x 3 and Tremors (negative)
Skin: Warm and Dry
General: Respiratory Distress (negative), Comfortable, Fever (negative) and Chills (negative)
Assessment
-
Assessment: 39-year-old female who is now #19 with a past medical history of gestational diabetes, and preeclampsia with severe features requiring labor induction with hemorrhage who presents with vaginal bleeding. She
was having some mild vaginal bleeding since she gave but she had a sudden 'gush' of bleeding while sitting on the couch prior to arrival. She then went to the bathroom and found bright red bleeding filling up the toilet bowl. Given the
severity of her bleeding, she called 911 and then came here to [facility] for further treatment. She was feeling lightheaded and fatigued since she was discharged from the hospital several weeks ago after her vaginal . She was having
lower abdominal cramping prior to ER arrival, worse than her typical cramps since delivery. She passed a clot 1 day DIRECT MARKETING INTERN which was smaller than the size of an egg. In the ER she was afebrile, with pulse rate 84, respiratory rate 15, initial BP
132/82 and saturating 100% on room air. Initial labs showed WBC 7.3, Hb 11.5, platelet count 184, urinalysis with negative leukocyte esterase, +3 occult blood with 11�15 urine RBC. Urine culture collected. CXR showed no acute cardiopulmonary
process. Pelvic/transvaginal ultrasound performed showing heterogeneous echogenicity measuring up to 2 cm at the lower uterine segment endometrium, suggestive of retained products of conception. In the ER she was given 1 L NS 0.9%, 800 mcg
misoprostol, 0.5 mg Dilaudid and she required Jesus-Synephrine initially due to hypotension with SBP in the 50-60s. PRODUCTION OPERATIONS INSPECTOR was consulted and she was brought to the OR for suction D&E with Desiree device placement and laceration repair. EBL was
approximately 500 cc. She was given 600 cc of crystalloids. The jaded device was removed and there was no active bleeding seen even up to 30 minutes after removal. Patient was transferred to the ICU for further monitoring and [facility] services
consulted for additional management/recommendations.
Chronic conditions DIRECT MARKETING INTERN: Preeclampsia with severe features s/p labor induction with hemorrhage requiring blood transfusion x 2, gestational diabetes, gestational thrombocytopenia, history of in vitro fertilization conception
Impression:
#Hemorrhagic shock � shock state now resolved
#Post- vaginal bleed
#Acute blood loss anemia
#Retained products of conception s/p suction dilation and evacuation, Mere device placement and laceration repair (POD #1)
#IVF conception with recent c/b gestational diabetes, gestational thrombocytopenia and pre-eclampsia with severe features requiring labor induction with PP-hemorrhage s/p 2 U PRBCC
Plan:
- Patient is getting second unit of blood now, and we will check a posttransfusion H&H
- Hemodynamically she is markedly improved, now off vasopressors
- Remains on IVF which can be weaned off as tolerated over the next 24 hrs
- Encourage PO intake
- Recs per OB service appreciated
- Continue iron supplementation
- I will add on a bowel regimen while on iron given the risk of constipation
- Up OOB as tolerated
- Maintain SpO2 >90-94% using supplemental O2 if needed
- Maintain MAP>65
- Replete electrolytes with K>4, Mg>2
- Maintain euglycemia with goal BG 140-180
- Trend H/H and transfuse if needed to keep Hb>7-8g/dL; keep plt>50k
- prn nebulized bronchodilators - not currently bronchospastic
- Incentive spirometer encouraged 10x per hour for at least 4 hrs a day
- DVT ppx: SCDs only for now
Patient is stable for downgrade out of ICU to telemetry. No additional recommendations at this time. [facility]Pulmonary service will now sign off. Thank you for allowing us to be involved in the care of this patient. Please reconsult if there
are any additional questions/concerns, or if patient's respiratory status deteriorates.
Data:
Pelvic/transvaginal ultrasound 04/26/2025: The lower uterine segment endometrium shows a region of heterogeneous echogenicity that measures up to 2.0 cm with color Doppler flow, considered suspicious for retained products of conception.
Total time spent today was 76 minutes for this encounter. Time includes reviewing laboratory test/imaging results, reviewing pertinent medical records, obtaining and reviewing medical history, performing an appropriate exam, ordering medications,
tests and procedures. Time also includes documentation of this encounter, coordinating patient care and communicating with other healthcare professionals. Total time does not include separately billed tests performed on this date of service.
[2025-04-27] MEDS: FEOSOL 325 MG PO ×2 (08:04→19:40)
--- NOTE | 2025-04-27 09:21 | W.PN.OBG.DWH ---
Today's Communication / Plan
-
-Plan for 2u pRBCs
-Post transfusion H/H
-Discharge home today pending H/H
Assessment/Plan
-
Kary is POD#19 from complicated by PreE w/SF and PPH and POD#1 from D&E for retained POCs complicated by ABLA.
1. ABLA
- S/p JORDYN
-Currently receiving 1u pRBCs
-Plan for 2u pRBCs
- Hgb trend 9.1 -> 10.1 -> 7.4
-F/u post transfusion H/H
-Transition diet to regular from NPO.
2. Post state
- Continue routine PP care
3. Discharge planning
- Discharge pending results of H/H and ICU
- Recommend PP follow up in 3 weeks w/Dr. Duarte
Subjective Data
-
Karan is POD#19 from complicated by PreE w/SF and PPH and POD#1 from D&E for retained POCs complicated by ABLA. Feeling well, some mild dizziness. Actively receiving 1u of pRBCs. No CP/SOB.
Objective Data
-
Laboratory Results
04/27/25 04:36
04/27/25 04:36
Vital Signs
Temp Pulse Resp BP Pulse Ox
99.3 F 89 14 118/80 99
04/27/25 08:25 04/27/25 09:00 04/27/25 09:00 04/27/25 09:00 04/27/25 09:00
[2025-04-27] MEDS: ZOFRAN 4 MG IV (10:20)
--- NOTE | 2025-04-27 11:44 | W.PN.HOSP.TC ---
Today's Communication/Plan
-
Blood transfusion
Assessment / Plan
Assessment / Plan
Physical exam:
General: Well Developed, Well Nourished and No Apparent Distress
HEENT: Normocephalic, Atraumatic and Moist Mucous Membranes
Respiratory: Clear to Auscultation; Negative Wheezes, Rales or Rhonchi
Cardiac: Regular Rhythm and S1/S2
GI: Soft, Nontender and Nondistended
Musculoskeletal: No Clubbing, No Cyanosis and No Edema
Neuro: Awake, Alert and Oriented
Psych: Calm
A/P:
Post- Hemorrhage
Hypovolemic / Hemorrhagic Shock secondary to the above
Acute Blood Los Anemia secondary to the above
- Admit to ICU for further evaluation and treatment. Transfer out of ICU today since patient hemodynamically stable
- Follow H&H for changes (11.5 pre-op and 9.1 post-op). Latest hemoglobin 7.4. Transfuse blood today
- IVF / volume support.
- Follow for evidence of ongoing vaginal bleeding.
- Post-op management per OB. Discussed with DEAN OF MEN-Ob today in person.
- Follow for clinical improvement / stabilization of BP.
- Plan to discharge later today or tomorrow. Patient is hesitant on going home later today so we will reevaluate.
DVT Prophylaxis: SCDs
Code Status: Full
Total time spent on today's encounter was 35 minutes which included time spent in counseling the patient/family regarding diagnosis and treatment plan as listed above, goals of care, and symptom management. Case was discussed with nursing staff,
specialists, and care coordinators/case management. All labs and imaging personally reviewed by me. Remainder the time spent in detailed review of previous records, lab data, imaging, and other medical provider documentation.
Anticipated Discharge: Within 24 hours
Subjective/Interval History
-
Date of Service: April 27, 2025
Patient still has generalized fatigue. No chest pain. Afebrile
Objective Data
-
Labs:
Laboratory Results
04/26/25 04/27/25 04/27/25
23:45 04:36 14:30
WBC 16.4 H Pending
Hgb 7.4 L D Pending
Hct 22.1 L Pending
Plt Count 204 Pending
Sodium 133 L 137
Potassium 4.5 4.8
Chloride 109 H 110 H
Carbon Dioxide 21 L 24
BUN 16 17
Creatinine 0.6 0.7
Glucose 152 H 116 H
Calcium 8.1 L 8.0 L
Vital Signs:
Vital Signs
Temp Pulse Resp BP Pulse Ox
99.1 F 82 15 120/67 100
04/27/25 10:13 04/27/25 11:30 04/27/25 11:30 04/27/25 11:30 04/27/25 11:30
I&O
04/26/25 04/27/25 04/28/25
06:59 06:59 06:59
Intake Total 2334 / 2459 875 / 875
Output Total 900 / 900
Balance 1434 / 1559 875 / 875
--- NOTE | 2025-04-27 12:27 | CM ---
Initial assessment completed with patient with mother in room. Patient lives with her and baby in a 2 story home with B/B on 2nd and 1/2 bath on 1st, 1 step to enter. 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 B/P cuff in the home. No in-home services. No HC-POA. No VA benefits. No psychiatric hospitalizations. PCP is Dr. Balta Stahl. Pharmacy is [facility] on [address] [facility] in [place].
Discharge POC: Home with REBA RN. Patient will be homebound.
--- NOTE | 2025-04-27 12:48 | PTCARENOTE ---
Report given to 2S. Pt stood for bed transfer without issue. Escorted to 2S with transport.
[2025-04-27 14:11] LABS: Hematocrit 31.5 % (37.0-47.0); Hemoglobin 10.2 g/dL (12.0-16.0); Mean Corp Hgb Conc. 32.4 g/dL (33.0-37.0); Mean Corpuscular Volume 96.9 fL (81.0-99.0); Platelet Count 165 10^3/uL (130-400); Red Cell Dist. Width 16.6 % (11.5-14.5)
--- NOTE | 2025-04-27 14:54 | PTCARENOTE ---
Patient transferred to [address] [place] [address] from ICU.She denies any pain but does say she is anxious.Vital signs are stable.The patient is in her bed with the call mix in reach.Her mother is also at the bedside.
--- NOTE | 2025-04-27 16:34 | VNURNOTE ---
Chart reviewed. Rec'ed info that [facility] can accept pt. Updated CM Irma Richards. She confirmed that pt agreeable to [facility]. [facility] in [facility]
[2025-04-27] MEDS: TYLENOL 650 MG PO (19:38)
[2025-04-27] MEDS: SENOKOT-S 1 TABLET PO (19:39)
[2025-04-27] MEDS: XANAX 0.25 MG PO (21:19)
[2025-04-27 21:23] LABS: Hematocrit 28.0 % (37.0-47.0); Hemoglobin 9.1 g/dL (12.0-16.0)
--- NOTE | 2025-04-28 02:31 | DOWNTIME ---
There was a [employer] Downtime on 04/28/2025 from 0100 to 04/28/2025 at 0215. Downtime documentation of patient's care, including medication administrations, has been reconciled in the electronic record per guidelines. Refer to the
patient's paper chart under the miscellaneous tab to see printed paper medication records and downtime forms.
[2025-04-28] MEDS: LR 1000 IV (04:20)
[2025-04-28] MEDS: TYLENOL 650 MG PO (04:44)
[2025-04-28 06:25] LABS: Hematocrit 27.9 % (37.0-47.0); Hemoglobin 8.9 g/dL (12.0-16.0); Mean Corp Hgb Conc. 31.9 g/dL (33.0-37.0); Mean Corpuscular Volume 95.5 fL (81.0-99.0); Platelet Count 146 10^3/uL (130-400); Red Cell Dist. Width 17.2 % (11.5-14.5)
[2025-04-28 06:49] LABS: Blood Urea Nitrogen 14 mg/dl (7-17); Calcium 8.3 mg/dl (8.4-10.2); Carbon Dioxide 27 mmol/L (22-30); Chloride 110 mmol/L (98-107); Estimated Creatinine Clearance 99 ml/min; Glucose 127 mg/dl (70-99); Potassium 4.2 mmol/L (3.5-5.1); Sodium 139 mmol/L (135-145); eGFR > 60.00
[2025-04-28 07:07] VITALS: BP 120/71
[2025-04-28] MEDS: SENOKOT-S 1 TABLET PO (08:03)
[2025-04-28] MEDS: FEOSOL 325 MG PO (08:03)
--- NOTE | 2025-04-28 08:23 | W.PN.HOSP.TC ---
Today's Communication/Plan
-
Discharge planning
Assessment / Plan
Assessment / Plan
Physical exam:
General: Well Developed, Well Nourished and No Apparent Distress
HEENT: Normocephalic, Atraumatic and Moist Mucous Membranes
Respiratory: Clear to Auscultation; Negative Wheezes, Rales or Rhonchi
Cardiac: Regular Rhythm and S1/S2
GI: Soft, Nontender and Nondistended
Musculoskeletal: No Clubbing, No Cyanosis and No Edema
Neuro: Awake, Alert and Oriented, no neurological deficit
Psych: Calm
A/P:
Post- Hemorrhage
Hypovolemic / Hemorrhagic Shock secondary to the above
Acute Blood Los Anemia secondary to the above
Today hemoglobin up to 8.9
Follow-up with CRIMINAL JUSTICE PROFESSOR as outpatient
Discussed with mother at bedside today
Plan to discharge today
- Admit to ICU for further evaluation and treatment. Transfer out of ICU today since patient hemodynamically stable
- Follow H&H for changes (11.5 pre-op and 9.1 post-op). Latest hemoglobin 7.4. Transfuse blood today
- IVF / volume support.
- Follow for evidence of ongoing vaginal bleeding.
- Post-op management per OB. Discussed with CRIMINAL JUSTICE PROFESSOR-Ob today in person.
- Follow for clinical improvement / stabilization of BP.
- Plan to discharge later today or tomorrow. Patient is hesitant on going home later today so we will reevaluate.
DVT Prophylaxis: SCDs
Code Status: Full
Anticipated Discharge: Today
Subjective/Interval History
-
Date of Service: April 28, 2025
Patient complains of abdominal cramps and had some vaginal blood clots overnight. Feeling better today.
Objective Data
-
Labs:
Laboratory Results
04/27/25 04/28/25
21:17 05:43
WBC 6.8
Hgb 9.1 L 8.9 L
Hct 28.0 L 27.9 L
Plt Count 146
Sodium 139
Potassium 4.2
Chloride 110 H
Carbon Dioxide 27
BUN 14
Creatinine 0.7
Glucose 127 H
Calcium 8.3 L
Vital Signs:
Vital Signs
Temp Pulse Resp BP Pulse Ox
99.0 F 69 18 120/71 96
04/28/25 07:07 04/28/25 07:07 04/28/25 07:07 04/28/25 07:07 04/28/25 07:07
I&O
04/27/25 04/28/25 04/29/25
06:59 06:59 06:59
Intake Total 2334 / 2459 1490 / 1490
Output Total 900 / 900
Balance 1434 / 1559 1490 / 1490
--- NOTE | 2025-04-28 11:14 | W.DCSUMMARY ---
Discharge Summary
Discharge Data
Date of Admission: 04/26/25
Date of Discharge: 04/28/25
Total time spent discharging patient (in min): 32
-
Pending Results: No
Hospital Course
Patient 39 years old female history of gestational diabetes, preeclampsia, came in with vaginal bleeding. She required labor induction and had complicated hemorrhage and symptomatic. SSIS ETL DEVELOPER was consulted and she was brought
to the OR for suction D&C with Desiree device placement and laceration repair. She had blood transfusions. She also received IV fluid. She was started on pressors but later on was discontinued. Patient hemoglobin is low 7.4 but after transfusion
hemoglobin has remained stable and latest hemoglobin is 8.9. INFANT BABYSITTER has cleared her for discharge. She will be discharged in relatively stable condition today with close follow-up with OB-INFANT BABYSITTER as outpatient.
Discharge duration: 32 minutes
Discharge Plan
-
Patient Disposition: Home with Home Care
Discharge Diagnosis/Procedures: Acute blood loss anemia. Hemorrhagic shock. Retained products of conception status post suction dilation and evacuation.
Diet: Low Cholesterol
Activity: As tolerated
Blood Work: Please PCP to order CBC, BMP within 1 week
Referrals:
Balta Stahl, DO [Family Provider] - in less than 1 week
Cindy Duarte MD [Active, Gynecology] - in one to two weeks
Prescriptions:
New
ferrous sulfate 325 mg (65 mg iron) tablet
325 mg PO Q OTHER DAY Qty: 15 0RF
alprazolam [Xanax] 0.25 mg tablet
0.25 mg PO HS PRN (Reason: anxiety) Qty: 14 0RF
Continued
famotidine [Pepcid] 40 mg Tablet
40 mg PO DAILY
vit-iron fum-folic ac [ Tablet] 28 mg iron- 800 mcg Tablet
1 tab PO DAILY
fluticasone propionate 50 mcg/actuation [place],Suspension
1 spray INTRANASAL DAILY
loratadine [Claritin] 10 mg Tablet
10 mg PO DAILY
omega-3 fatty acids Capsule
1,000 mg PO DAILY
Vitamin D3 Complete 18 mg iron-800 mcg-150 mg Tablet
1 tab PO DAILY
acetaminophen [Tylenol Extra Strength] 500 mg Tablet
1,000 mg PO Q6HPRN PRN (Reason: headache) 60 Days Qty: 90 0RF
ibuprofen 600 mg Tablet
600 mg PO Q6HPRN PRN (Reason: moderate pain/cramps) 60 Days Qty: 90 0RF
Discontinued
ferrous sulfate [FeroSul] 325 mg (65 mg iron) Tablet
325 mg PO DAILY 30 Days Qty: 30 0RF
Discharge Orders:
Discharge Patient (As Directed); Ordered 04/28/25
Ordered By: Ralf Lorenzo
Discharge Date and Time
Discharge Date/Time: 04/28/25 14:07
Print Language: MONGOLIAN
--- NOTE | 2025-04-28 12:10 | CM ---
CM following re: discharge planning.
Reviewed pt's chart, met with pot and pt's mother at bedside.
Discharge order noted. Both pt and her mother are aware. Pt's mother stated she will transport home.
A referral to [facility] noted. Pt is aware and she stated [facility] parts counter representative already called her.
Please fax discharge to [facility] at home [phone]
D/c plan: home with [facility] and family support. Mother to transport.
--- NOTE | 2025-04-28 12:57 | W.PN.OBG.DWH ---
Today's Communication / Plan
-
Daily oral Fe suppl and fe rich foods at home
Monitor for increased bleeding/s/sx of infection at home
f/u with therapist. Rx for Xanax sent to pharmacy.
Stable for dc home today.
Assessment/Plan
-
39yo POD#2 s/p D&E for delayed PPH/retained POC
1. PPH
-s/p 2U PRBCs
-Hgb this morning 8.9 (9.1 yesterday, so stable)
-Patient started on oral Fe therapy and reviewed Fe rich foods that she can eat.
-Bleeding is much decreased. I reviewed reasons to call/return to ER with regard to bleeding. Explained it is highly unlikely for her to have a repeat episode of this.
-reviewed s/sx of infection as well and reasons to call
2. Anxiety
-patient extremely concerned about being at home, she is afraid to leave the hospital. States she did well with Xanax last night and wondering if she can do this in case she has any panic attacks. She was on lexapro in the past and did not do well
with this- says it worsened her depression symptoms. Advised we can send Rx for Xanax to be used prn but also would like her to speak with a therapist. I will have office provide her with a list of PP therapists. In addition I suggested d/w PCP to
review alternative classes of anti-depressants as patient does not want to do SSRI.
Subjective Data
-
feels okay, slightly weak still. Tolerating PO intake. Has been able to ambulate and void on her own. She is extremely anxious about going home and having this happen again. She is afraid to sleep or be alone with the baby. She had a clot last night
but no other increase in bleeding. Her bleeding this morning was minimal.
Objective Data
-
Laboratory Results
04/28/25 05:43
04/28/25 05:43
Vital Signs
Temp Pulse Resp BP Pulse Ox
99.0 F 69 18 120/71 96
04/28/25 07:07 04/28/25 07:07 04/28/25 07:07 04/28/25 07:07 04/28/25 07:07
Gen: nad well appearing
Abd: soft, mild ttp, fundus below umbilicus
[2025-04-28 13:12] VITALS: BP 138/89
== END 2025-04-28 14:07 | disposition home health service (06) | DRG 769 ==
LOC: 2 SOUTH 21:53
PROVIDERS: Emergency Medicine; Nurse Practitioner Family; Nurse Practitioner Primary Care; Obstetrics & Gynecology; Physician Assistant; ADMITTING PHYSICIAN Hospitalist; ATTENDING PHYSICIAN Hospitalist; CONSULT PHYSICIAN Internal Medicine Critical Care Medicine; EMERGENCY PHYSICIAN Student in an Organized Health Care Education/Training Program; FAMILY PHYSICIAN Family Medicine
PROC: 0W3R7ZZ Control Bleeding in Genitourinary Tract, Via Natural or Artificial Opening (ICD-10-PCS; 2025-04-26)
PROC: 0UQGXZZ Repair Vagina, External Approach (ICD-10-PCS; 2025-04-26)
PROC: 10D17ZZ Extraction of Products of Conception, Retained, Via Natural or Artificial Opening (ICD-10-PCS; 2025-04-26)
PROC: 30233N1 Transfusion of Nonautologous Red Blood Cells into Peripheral Vein, Percutaneous Approach (ICD-10-PCS; 2025-04-27)
DX: O72.0 Third-stage hemorrhage (principal); O75.1 Shock during or following labor and delivery; D62 Acute posthemorrhagic anemia; O90.81 Anemia of the puerperium; I95.81 Postprocedural hypotension
CPT/HCPCS: 71045; 76830; 76856; 80048; 80053; 81003; 81015; 82962; 83735; 84100; 85014; 85018; 85025; 85027; 85384; 85610; 85730; 86850; 86870; 86900; 86901; 86920; 86922; 87086; 88305; 93005; 96360; 99285; P9016

== ENCOUNTER 2025-05-27 12:21 | Outpatient (RCR) | payer BC, SELFPAY | END 2025-06-04 23:59 | disposition home or self-care (01) | LOC: RPT 12:21 | PROVIDERS: ATTENDING PHYSICIAN Obstetrics & Gynecology; FAMILY PHYSICIAN Family Medicine | DX: R32 Unspecified urinary incontinence (principal); Z39.2 Encounter for routine postpartum follow-up; Z73.6 Limitation of activities due to disability | CPT/HCPCS: 97161; 97530 ==

== ENCOUNTER 2025-07-06 08:33 | Outpatient (RCR) | payer BC, SELFPAY | END 2025-07-06 23:59 | disposition home or self-care (01) | LOC: RPT 08:33 | PROVIDERS: ATTENDING PHYSICIAN Obstetrics & Gynecology; FAMILY PHYSICIAN Family Medicine | DX: R32 Unspecified urinary incontinence (principal); Z39.2 Encounter for routine postpartum follow-up; Z73.6 Limitation of activities due to disability; M62.81 Muscle weakness (generalized); R10.30 Lower abdominal pain, unspecified | CPT/HCPCS: 97110; 97112; 97530 ==